=== PATIENT | female | born 1960 | race Caucasian/White ===

== ENCOUNTER → 2022-02-28 12:38 | Outpatient (CLI) | payer OTHER, SELFPAY ==
--- NOTE | 2022-02-28 | DI.MRI.S_ITS ---
PROCEDURE: MR SHOULDER LT W CON INDICATIONS: Pain in left shoulder TECHNIQUE: After the administration of 12 mL of dilute intra-articular Gadolinium contrast, oblique coronal T1 and T2 spin echo with fat saturation, oblique sagittal T1 spin echo with and without fat saturation, oblique sagittal T2 fast spin echo with fat saturation, axial T1 spin echo with fat saturation through the shoulder. COMPARISON: None. FINDINGS: Image quality: Excellent. Rotator cuff: There is prior rotator cuff tendon repair with postsurgical changes in superior lateral shoulder soft tissue. Low-grade articular and bursal surface partial thickness tear involving distal supraspinatus at its insertion on humeral head is seen. Distal infraspinatus tendinosis at its insertion on the humeral head is also noted. Distal subscapularis tendinosis is seen. No full-thickness rotator cuff tendon rupture. No significant rotator cuff muscle atrophy on sagittal images. Bones and bursae: Postsurgical changes are seen in greater tuberosity of humeral head. No marrow edema. No acute fracture or dislocation. Expected postsurgical widening of acromioclavicular joint is noted. Capsule and soft tissues: There is focal area of contrast extension in superior anterior labrum at 12 to 1 o'clock position concerning for superior anterior labral tear. The glenohumeral ligaments appear intact. The long head of the biceps tendon is not visualized intra-articularly. The rotator interval appears normal, without fibrosis. The coracohumeral ligament is of normal thickness. No intra-articular bodies. IMPRESSION: 1. Postsurgical changes from prior rotator cuff tendon repair. No fracture or dislocation. No marrow edema. Expected postsurgical widening of acromioclavicular joint. 2. Low-grade articular and bursal surface partial thickness tear involving distal supraspinatus. Distal infraspinatus and subscapularis tendinosis. No full-thickness rotator cuff tendon rupture. 3. Finding is concerning for superior anterior labral tear at 12 to 1 o'clock position. 4. Nonvisualization of proximal intra-articular portion of long head of biceps most consistent with postsurgical changes versus ruptured proximal long head of biceps. Dictated by: Kyaw Garcia M.D. on 02/28/2022 at 13:35 Approved by: Kyaw Garcia M.D. on 02/28/2022 at 13:44
--- NOTE | 2022-02-28 | DI.RAD.S_ITS ---
PROCEDURE: FL SHOULDER INJECTION MR/CT LT INDICATIONS: Pain in left shoulder COMPARISON: None. TECHNIQUE: The indications, alternatives, benefits, risks, and complications of the procedure were explained to the patient. Written informed consent was obtained and placed in the chart. The shoulder was examined fluoroscopically and a site for needle placement chosen for entry into the glenohumeral joint from an anterior approach. The skin was prepped and draped in a sterile fashion, and 1% lidocaine infiltrated from skin down to joint capsule. A spinal needle was inserted into the glenohumeral joint, and a small amount of iodinated contrast media injected to confirm intra-articular placement of the needle tip. This was followed by approximately 12 mL dilute solution of a gadolinium containing MR contrast agent. The needle was removed and a dressing was applied. The patient was given postprocedural instructions and sent to the MR suite for MR imaging. FINDINGS: A single fluoroscopic spot image demonstrates intra-articular location of injected iodinated contrast. IMPRESSION: Successful fluoroscopically guided administration of dilute Gadolinium solution into the shoulder joint for MR arthrogram. Dictated by: Adelaide Joy MD, PhD on 02/28/2022 at 14:46 Approved by: Adelaide Joy MD, PhD on 02/28/2022 at 14:46
== END ==
PROVIDERS: PCP Internal Medicine; Referring Provider Student in an Organized Health Care Education/Training Program; Visit Provider Student in an Organized Health Care Education/Training Program
DX: S46.012A Strain of muscle(s) and tendon(s) of the rotator cuff of left shoulder, initial encounter (principal); S43.432S Superior glenoid labrum lesion of left shoulder, sequela; M25.512 Pain in left shoulder; Z98.890 Other specified postprocedural states
CPT/HCPCS: 23350; 73222